=== PATIENT | female | born 1970 | race Caucasian/White ===

== ENCOUNTER 2017-01-30 08:46 | Emergency (ER) | payer OTHER ==
[2017-01-30] MEDS ORDERED: MECLIZINE 12.5 MG TABLET PO STA (09:26)
[2017-01-30] MEDS ORDERED: DEXAMETHASONE 10 MG/ML VIAL PO STA (09:27)
[2017-01-30] MEDS ORDERED: DEXAMETHASONE 10 MG/ML VIAL ONE (09:28)
[2017-01-30] MEDS ORDERED: MECLIZINE 12.5 MG TABLET PO ONE (09:28)
== END 2017-01-30 09:45 | disposition home or self-care (01) ==
DX: H66.001 Acute suppurative otitis media without spontaneous rupture of ear drum, right ear (principal); Z87.891 Personal history of nicotine dependence
CPT/HCPCS: 99283; 99284; A9270